=== PATIENT | female | born 1995 | race Caucasian/White ===

== ENCOUNTER 2017-06-21 20:17 | Emergency (ER) | payer BC ==
[2017-06-21 20:22] VITALS: TEMP 97.9
--- NOTE | 2017-06-21 20:29 | EDPHY ---
H & P Smoking Status: Never smoked Time Seen by Provider: 06/21/17 20:28 HPI/ROS: Chief complaint. Shortness of breath HPI. Patient is 21-year-old female presents emergency department with shortness of breath that began this morning. She feels like she is not getting enough air and has difficulty breathing. She has no cough or congestion. She does have pain to the lateral aspects of both sides of her chest. No unusual leg pain or swelling. She was well yesterday. She does take Adderall for attention deficit hyperactivity disorder but is taking less than prescribed. She has not had a fever. She had a similar episode about 2 months ago with normal workup. She has no history of lung disease or asthma. ROS Constitutional. no fever/chills, no weakness Eyes. no problems with vision ENT. no sore throat, no nasal drainage Cardiovascular. Lateral chest pain both sides Respiratory. Shortness of breath without cough Abdominal. no abdominal pain, no nausea/vomiting, no diarrhea . no problems urinating MS. no calf pain/swelling, no neck/back pain, no joint pain Skin. no rash Lymph. no swollen glands Neuro. no headache, no dizziness, no difficulty walking or with speech (Taqueria Parker) Past Medical/Surgical History: Past medical history significant for attention deficit hyperactivity disorder ( Taqueria Parker) Social History: Single, nonsmoker, no alcohol (Taqueria Parker) Physical Exam: General Appearance: Alert well-developed female anxious hyperventilating moderate distress vital signs significant for heart rate of 130, blood pressure 141/121, respiratory rate 36, O2 saturation room air 99% Eyes: Pupils equal and round no pallor or injection. ENT, Mouth: Mucous membranes are moist. Respiratory: There are no retractions, lungs are clear to auscultation. No wheezes, rales, rhonchi Cardiovascular: Regular rate and rhythm. Tachycardia Gastrointestinal: Abdomen is soft and nontender, no masses, bowel sounds normal. Neurological: Awake and alert, sensory and motor exams grossly normal. Skin: Warm and dry, no rashes. Musculoskeletal: Neck is supple nontender. Extremities symmetrical, full range of motion. Psychiatric: Patient is oriented X 3, there is no agitation. (Taqueria Parker) Constitutional: Initial Vital Signs Temperature (C) 36.6 C 06/21/17 20:19 Heart Rate 130 H 06/21/17 20:19 Respiratory Rate 36 H 06/21/17 20:19 Blood Pressure 141/121 H 06/21/17 20:19 O2 Sat (%) 99 06/21/17 20:19 O2 (L/minute) 3 Allergies/Adverse Reactions: No Known Allergies Allergy (Unverified 06/21/17 20:19) Home Medications: Medication Instructions Recorded Adderall 5 mg Tablet 06/21/17 LORazepam [Ativan] 1 mg PO Q6-8PRN PRN #10 tab 06/21/17 Medical Decision Making - Diagnostics Imaging Results: Imaging Impressions Chest X-Ray 06/21/17 20:39 Impression: Negative. Chest/Thorax CTA 06/21/17 22:11 Impression: No evidence for pulmonary embolic disease. Results called and discussed with Cholo Hirsch MD, at 06/21/2017 22:33 General information for patients regarding this examination can be found at [email or web address] If you have questions or comments about this report, please contact me at (hospital) or [phone] (cell). One-view chest x-ray interpreted by me as normal. No evidence for pneumonia or pneumothorax (Taqueria Parker) Procedures: IV normal saline, monitor. Ativan and fentanyl IV. Patient declines fentanyl. (Taqueria Parker) ED Course/Re-evaluation: Re-evaluation 905 p.m. and patient is somewhat better. Speaking in full sentences Patient and I discussed laboratory and x-ray evaluation. We discussed the D- dimer is still pending. (Taqueria Parker) Differential Diagnosis: I believe this is likely hyperventilation syndrome. I think that this is due to anxiety. I have considered pneumonia, asthma, pulmonary embolus. She has had clear breath sounds without ever any evidence of wheezing. She has improved after IV Ativan and is now conversational (Taqueria Parker) Other Provider: Patient signed out to me by Dr. Parker at 2130 pending d-dimer. This test was positive so after discussion with patient I ordered a CTA chest. Thankfully this is negative. On re-evaluation, the patient feels much better and her vitals are normal. She is comfortable with the plan to be discharged home. ( Cholo Hirsch) Care Turn Over: Dr. Hirsch at 9:15 pm (Taqueria Parker Marcial) - Data Points Laboratory Results: Laboratory Results 06/21/17 20:33 06/21/17 20:33 06/21/17 06/21/17 06/21/17 21:33 20:33 20:33 WBC RBC Hgb Hct MCV MCH MCHC RDW Plt Count MPV Neut % (Auto) Lymph % (Auto) Butler % (Auto) Eos % (Auto) Baso % (Auto) Nucleat RBC Rel Count Absolute Neuts (auto) Absolute Lymphs (auto) Absolute Monos (auto) Absolute Eos (auto) Absolute Basos (auto) Absolute Nucleated RBC Immature Gran % Immature Gran # D-Dimer 0.78 ug/mLFEU H ug/mLFEU (0.00-0.50) Sodium 139 mEq/L mEq/L (134-144) Potassium 3.4 mEq/L L mEq/L (3.5-5.2) Chloride 103 mEq/L mEq/L (97-110) Carbon Dioxide 19 mEq/l L mEq/l (22-31) Anion Gap 17 mEq/L H mEq/L (8-16) BUN 6 mg/dL L mg/dL (7-23) Creatinine 0.9 mg/dL mg/dL (0.6-1.0) Estimated GFR > 60 Glucose 100 mg/dL mg/dL (70-100) Calcium 10.3 mg/dL mg/dL (8.5-10.4) Beta HCG, Qual NEGATIVE 06/21/17 20:33 WBC 7.93 10^3/uL 10^3/uL (3.80-9.50) RBC 4.75 10^6/uL 10^6/uL (4.18-5.33) Hgb 14.2 g/dL g/dL (12.6-16.3) Hct 40.8 % % (38.0-47.0) MCV 85.9 fL fL (81.5-99.8) MCH 29.9 pg pg (27.9-34.1) MCHC 34.8 g/dL g/dL (32.4-36.7) RDW 12.4 % % (11.5-15.2) Plt Count 338 10^3/uL 10^3/uL (150-400) MPV 10.1 fL fL (8.7-11.7) Neut % (Auto) 67.4 % % (39.3-74.2) Lymph % (Auto) 22.3 % % (15.0-45.0) Butler % (Auto) 8.1 % % (4.5-13.0) Eos % (Auto) 1.1 % % (0.6-7.6) Baso % (Auto) 0.8 % % (0.3-1.7) Nucleat RBC Rel Count 0.0 % % (0.0-0.2) Absolute Neuts (auto) 5.35 10^3/uL 10^3/uL (1.70-6.50) Absolute Lymphs (auto) 1.77 10^3/uL 10^3/uL (1.00-3.00) Absolute Monos (auto) 0.64 10^3/uL 10^3/uL (0.30-0.80) Absolute Eos (auto) 0.09 10^3/uL 10^3/uL (0.03-0.40) Absolute Basos (auto) 0.06 10^3/uL 10^3/uL (0.02-0.10) Absolute Nucleated RBC 0.00 10^3/uL 10^3/uL (0-0.01) Immature Gran % 0.3 % % (0.0-1.1) Immature Gran # 0.02 10^3/uL 10^3/uL (0.00-0.10) D-Dimer Sodium Potassium Chloride Carbon Dioxide Anion Gap BUN Creatinine Estimated GFR Glucose Calcium Beta HCG, Qual Medications Given: Discontinued Medications Fentanyl (Sublimaze) 50 mcg IVP EDNOW ONE Stop: 06/21/17 20:42 Last Admin: 06/21/17 21:44 Dose: Not Given Sodium Chloride (Ns) 1,000 mls @ 0 mls/hr IV ONCE ONE; Wide Open PRN Reason: Protocol Stop: 06/21/17 20:40 Last Admin: 06/21/17 20:53 Dose: 1,000 mls Lorazepam (Ativan Injection) 0.5 mg IVP EDNOW ONE Stop: 06/21/17 20:41 Last Admin: 06/21/17 20:53 Dose: 0.5 mg Departure - Departure Disposition: Home, Routine, Self-Care Clinical Impression: Hyperventilation syndrome Condition: Good Instructions: Hyperventilation (ED), Anxiety (ED) Additional Instructions: Ativan if needed for difficulty breathing. Return for worsening symptoms. Re- evaluation by [facility] in the next 1-2 days. Referrals: NONE *PRIMARY CARE P,. [Primary Care Provider] - As per Instructions [facility] [Outside] - 1-2 days without fail Prescriptions: LORazepam [Ativan] 1 mg PO Q6-8PRN PRN #10 tab PRN Reason: Anxiety
[2017-06-21] MEDS ORDERED: NS 1,000 ML IV ONE (20:39)
[2017-06-21] MEDS ORDERED: LORazepam 2 MG/ML INJ IVP ONE (20:40)
[2017-06-21] MEDS ORDERED: fentaNYL 100 MCG/2 ML INJ IVP ONE (20:41)
[2017-06-21 20:53] LABS: % IMMATURE GRANULYOCYTES 0.3 % (0.0-1.1); ABSOLUTE IMMATURE GRANULOCYTES 0.02 10^3/uL (0.00-0.10); ADD DIFF? NO; ADD MORPH? NO; ADD SCAN? NO; ATYPICAL LYMPHOCYTE FLAG 10 (0-99); FRAGMENT RBC FLAG 0 (0-99); HEMATOCRIT 40.8 % (38.0-47.0); HEMOGLOBIN 14.2 g/dL (12.6-16.3); LEFT SHIFT FLG 0 (0-99); LIPEMIA HEMOLYSIS FLAG 90 (0-99); MEAN CELL HEMOGLOBIN 29.9 pg (27.9-34.1); MEAN CELL HEMOGLOBIN CONCENTR. 34.8 g/dL (32.4-36.7); MEAN CELL VOLUME 85.9 fL (81.5-99.8); MEAN PLATELET VOLUME 10.1 fL (8.7-11.7); PLATELET CLUMPS FLAG 20 (0-99); PLATELET COUNT 338 10^3/uL (150-400); RED BLOOD CELL COUNT 4.75 10^6/uL (4.18-5.33); RED CELL DISTRIBUTION WIDTH 12.4 % (11.5-15.2)
[2017-06-21 21:06] LABS: ANION GAP 17 mEq/L (8-16); CALCIUM 10.3 mg/dL (8.5-10.4); CARBON DIOXIDE 19 mEq/l (22-31); CHLORIDE 103 mEq/L (97-110); CREATININE 0.9 mg/dL (0.6-1.0); GLOMERULAR FILTRATION RATE > 60; GLUCOSE 100 mg/dL (70-100); POTASSIUM 3.4 mEq/L (3.5-5.2); SODIUM 139 mEq/L (134-144)
[2017-06-21] MEDS ORDERED: IOPAMIDOL (ISOVUE 370) 100 ML BTL IV ONE (22:12)
[2017-06-21 22:34] VITALS: BP 120/75; PULSE 99; RESP 14; O2SAT 97
== END 2017-06-21 22:45 | disposition home or self-care (01) ==
DX: R06.4 Hyperventilation (principal); E86.9 Volume depletion, unspecified
CPT/HCPCS: 96374; J2060; J3010; Q9967